=== PATIENT | female | born 1945 | race Native Hawaiian/Other Pacific Islander ===

== ENCOUNTER 2017-03-07 15:59 | Outpatient (CLI) | payer OTHER | END 2017-03-07 19:09 | disposition home or self-care (01) | LOC: LAB 15:59 | DX: N39.0 Urinary tract infection, site not specified (principal) | CPT/HCPCS: 81000; 87086; 87088 ==

== ENCOUNTER 2017-03-18 10:46 | Outpatient (CLI) | payer OTHER ==
[2017-03-18 11:22] LABS: PLATELET COUNT 303 K/uL (152-353)
[2017-03-18 11:32] LABS: POTASSIUM 4.6 mmol/L (3.6-5.2)
[2017-05-04] MEDS ORDERED: DEPAKOTE DR PO (02:29)
[2017-05-04] MEDS ORDERED: METFTAB PO (02:29)
[2017-05-04] MEDS ORDERED: DONE5TAB PO (02:30)
[2017-05-04] MEDS ORDERED: BENZ1TAB43 PO (02:30)
[2017-05-04] MEDS ORDERED: ESTRACE0.5 MG PO (02:32)
[2017-05-04] MEDS ORDERED: FERROUS SULF325 M1 PO (02:33)
[2017-05-04] MEDS ORDERED: THIOTHIXENE5 MG PO (02:33)
[2017-05-04] MEDS ORDERED: ZIPR20CA PO (02:34)
== END 2017-03-18 19:02 | disposition home or self-care (01) ==
LOC: LAB 10:46
PROVIDERS: Internal Medicine
DX: E11.51 Type 2 diabetes mellitus with diabetic peripheral angiopathy without gangrene (principal); F32.89 Other specified depressive episodes; I87.2 Venous insufficiency (chronic) (peripheral); E03.8 Other specified hypothyroidism
CPT/HCPCS: 80053; 83036; 84439; 84443; 85027

== ENCOUNTER 2017-05-03 18:38 | Outpatient (CLI) | payer OTHER ==
[2017-05-04] MEDS ORDERED: DEPAKOTE DR PO (02:29)
[2017-05-04] MEDS ORDERED: METFTAB PO (02:29)
[2017-05-04] MEDS ORDERED: DONE5TAB PO (02:30)
[2017-05-04] MEDS ORDERED: BENZ1TAB43 PO (02:30)
[2017-05-04] MEDS ORDERED: ESTRACE0.5 MG PO (02:32)
[2017-05-04] MEDS ORDERED: FERROUS SULF325 M1 PO (02:33)
[2017-05-04] MEDS ORDERED: THIOTHIXENE5 MG PO (02:33)
[2017-05-04] MEDS ORDERED: ZIPR20CA PO (02:34)
== END 2017-05-03 18:55 | disposition short-term general hospital (02) ==
LOC: AMB 18:38
DX: R41.82 Altered mental status, unspecified (principal)
CPT/HCPCS: A0425; A0427

== ENCOUNTER 2017-07-04 09:45 | Inpatient (IN) | payer OTHER ==
[~2017-07-04 09:45] MED LIST: BENZ1TAB43 PO; DEPAKOTE DR PO; DONE5TAB PO; ESTRACE0.5 MG PO; FERROUS SULF325 M1 PO; METFTAB PO; THIOTHIXENE5 MG PO; ZIPR20CA PO
== END 2017-07-14 10:57 | disposition still patient (30) ==
LOC: PAVC 09:45
PROVIDERS: ADMIT Internal Medicine

== ENCOUNTER 2017-07-05 02:54 | Outpatient (CLI) | payer OTHER ==
[2017-07-05 07:10] LABS: PLATELET COUNT 380 K/uL (152-353)
[2017-07-05 09:19] LABS: POTASSIUM 4.4 mmol/L (3.6-5.2)
== END 2017-07-05 19:22 | disposition home or self-care (01) ==
LOC: LAB 02:54
PROVIDERS: Internal Medicine
DX: D50.8 Other iron deficiency anemias (principal); G30.8 Other Alzheimer's disease; F20.89 Other schizophrenia; G31.84 Mild cognitive impairment of uncertain or unknown etiology; E11.9 Type 2 diabetes mellitus without complications
CPT/HCPCS: 80053; 82728; 83036; 83540; 83735; 85027; 87081

== ENCOUNTER 2017-07-09 04:08 | Outpatient (CLI) | payer OTHER | END 2017-07-09 19:02 | disposition home or self-care (01) | LOC: LAB 04:08 | DX: R41.82 Altered mental status, unspecified (principal) | CPT/HCPCS: 81000 ==

== ENCOUNTER 2017-07-13 12:45 | Outpatient (CLI) | payer OTHER | END 2017-07-13 19:13 | disposition home or self-care (01) | LOC: LAB 12:45 | DX: R19.7 Diarrhea, unspecified (principal) | CPT/HCPCS: 82272; 87015; 87045; 87324; 87328; 87329; 87449; 87899 ==

== ENCOUNTER 2017-07-14 11:46 | Inpatient (IN) | payer OTHER | END 2017-08-14 11:13 | disposition still patient (30) | LOC: PAVC 11:46 | PROVIDERS: ADMIT Internal Medicine ==

== ENCOUNTER 2017-08-07 19:55 | Outpatient (CLI) | payer OTHER | END 2017-08-07 20:55 | disposition home or self-care (01) | LOC: LAB 19:55 | DX: R41.0 Disorientation, unspecified (principal) | CPT/HCPCS: 81000 ==

== ENCOUNTER 2017-08-14 12:30 | Inpatient (IN) | payer OTHER | END 2017-09-11 10:38 | disposition still patient (30) | LOC: PAVC 12:30 | PROVIDERS: ADMIT Internal Medicine ==

== ENCOUNTER 2017-08-18 15:08 | Outpatient (CLI) | payer OTHER | END 2017-08-18 20:28 | disposition home or self-care (01) | LOC: LAB 15:08 | DX: R26.89 Other abnormalities of gait and mobility (principal); R41.82 Altered mental status, unspecified | CPT/HCPCS: 81000; 87077; 87086; 87088; 87186 ==

== ENCOUNTER 2017-09-10 04:39 | Outpatient (CLI) | payer OTHER | END 2017-09-10 21:38 | disposition home or self-care (01) | LOC: LAB 04:39 | DX: R35.0 Frequency of micturition (principal); R10.84 Generalized abdominal pain | CPT/HCPCS: 81000 ==

== ENCOUNTER 2017-09-11 10:57 | Inpatient (IN) | payer OTHER ==
[2017-10-13] MEDS ORDERED: PANTOPRAZOLE 40MG TA PO (17:55)
[2017-10-13] MEDS ORDERED: FERROUS SULF325 M1 PO (17:56)
[2017-10-13] MEDS ORDERED: BENZ1TAB43 PO (17:57)
[2017-10-13] MEDS ORDERED: MAG OXIDE400 MG OR (17:58)
[2017-10-13] MEDS ORDERED: NAMZARIC 28-101 CAP PO (17:58)
[2017-10-13] MEDS ORDERED: GEODON60 MG PO (17:59)
[2017-10-13] MEDS ORDERED: DIVALPROEX250 M1 PO (17:59)
[2017-10-13] MEDS ORDERED: FIBER LAXATIV0.52 GM PO (18:00)
== END 2017-10-12 08:00 | disposition still patient (30) ==
LOC: PAVC 10:57
PROVIDERS: ADMIT Internal Medicine

== ENCOUNTER 2017-09-19 05:14 | Outpatient (CLI) | payer OTHER | END 2017-09-19 21:13 | disposition home or self-care (01) | LOC: LAB 05:14 | DX: E03.8 Other specified hypothyroidism (principal); E11.9 Type 2 diabetes mellitus without complications | CPT/HCPCS: 83036 ==

== ENCOUNTER 2017-10-12 09:00 | Inpatient (IN) | payer OTHER ==
[2017-10-13] MEDS ORDERED: PANTOPRAZOLE 40MG TA PO (17:55)
[2017-10-13] MEDS ORDERED: FERROUS SULF325 M1 PO (17:56)
[2017-10-13] MEDS ORDERED: BENZ1TAB43 PO (17:57)
[2017-10-13] MEDS ORDERED: MAG OXIDE400 MG OR (17:58)
[2017-10-13] MEDS ORDERED: NAMZARIC 28-101 CAP PO (17:58)
[2017-10-13] MEDS ORDERED: DIVALPROEX250 M1 PO (17:59)
[2017-10-13] MEDS ORDERED: GEODON60 MG PO (17:59)
[2017-10-13] MEDS ORDERED: FIBER LAXATIV0.52 GM PO (18:00)
== END 2017-11-11 10:28 | disposition still patient (30) ==
LOC: PAVC 09:00
PROVIDERS: ADMIT Internal Medicine
CPT/HCPCS: 85014; 85018

== ENCOUNTER 2017-10-13 17:35 | Emergency (ER) | payer OTHER ==
[~2017-10-13] VITALS: Ht 162.6 cm; Wt 60.0 kg
[2017-10-13] MEDS ORDERED: PANTOPRAZOLE 40MG TA PO (17:55)
[2017-10-13] MEDS ORDERED: FERROUS SULF325 M1 PO (17:56)
[2017-10-13] MEDS ORDERED: BENZ1TAB43 PO (17:57)
[2017-10-13] MEDS ORDERED: NAMZARIC 28-101 CAP PO (17:58)
[2017-10-13] MEDS ORDERED: MAG OXIDE400 MG OR (17:58)
[2017-10-13] MEDS ORDERED: DIVALPROEX250 M1 PO (17:59)
[2017-10-13] MEDS ORDERED: GEODON60 MG PO (17:59)
[2017-10-13] MEDS ORDERED: FIBER LAXATIV0.52 GM PO (18:00)
[2017-10-13 18:31] LABS: PLATELET COUNT 363 K/uL (152-353)
[2017-10-13 18:52] LABS: POTASSIUM 4.5 mmol/L (3.6-5.2)
[2017-10-13 20:10] VITALS: BP 110/62; TEMP 97.6
== END 2017-10-13 20:10 | disposition home or self-care (01) ==
LOC: ED 17:35
DX: S60.511A Abrasion of right hand, initial encounter (principal); R00.0 Tachycardia, unspecified; W01.0XXA Fall on same level from slipping, tripping and stumbling without subsequent striking against object, initial encounter; Y92.129 Unspecified place in nursing home as the place of occurrence of the external cause
CPT/HCPCS: 36415; 80048; 81000; 82550; 84484; 85027; 93005; 96374; 99284; J3490

== ENCOUNTER 2017-10-14 13:34 | Outpatient (CLI) | payer OTHER ==
[~2017-10-14 13:34] MED LIST changes: +DIVALPROEX250 M1 PO; +FIBER LAXATIV0.52 GM PO; +GEODON60 MG PO; +MAG OXIDE400 MG OR; +NAMZARIC 28-101 CAP PO; +PANTOPRAZOLE 40MG TA PO
== END 2017-10-14 22:56 | disposition home or self-care (01) ==
LOC: LAB 13:34
DX: Z79.899 Other long term (current) drug therapy (principal); Z51.81 Encounter for therapeutic drug level monitoring
CPT/HCPCS: 80076

== ENCOUNTER 2017-10-27 17:53 | Outpatient (CLI) | payer OTHER ==
[2017-10-27 18:42] LABS: PLATELET COUNT 348 K/uL (152-353)
[2017-10-27 18:50] LABS: POTASSIUM 4.3 mmol/L (3.6-5.2)
== END 2017-10-27 20:11 | disposition home or self-care (01) ==
LOC: LAB 17:53
PROVIDERS: Internal Medicine
DX: R53.1 Weakness (principal); Z73.6 Limitation of activities due to disability
CPT/HCPCS: 80053; 81000; 83735; 85027; 87088

== ENCOUNTER 2017-10-30 04:55 | Outpatient (CLI) | payer OTHER | END 2017-10-30 22:03 | disposition home or self-care (01) | LOC: LAB 04:55 | DX: Z79.899 Other long term (current) drug therapy (principal); Z51.81 Encounter for therapeutic drug level monitoring | CPT/HCPCS: 80162 ==

== ENCOUNTER 2017-11-03 13:02 | Outpatient (CLI) | payer OTHER | END 2017-11-03 22:51 | disposition home or self-care (01) | LOC: CT 13:02 | DX: R41.82 Altered mental status, unspecified (principal) ==

== ENCOUNTER 2017-11-06 23:29 | Outpatient (CLI) | payer OTHER | END 2017-11-06 23:50 | disposition home or self-care (01) | LOC: LABW 23:29 | DX: R82.99 Other abnormal findings in urine (principal) | CPT/HCPCS: 81000 ==

== ENCOUNTER 2017-11-07 09:11 | Outpatient (CLI) | payer OTHER | END 2017-11-07 19:13 | disposition home or self-care (01) | LOC: LAB 09:11 → INF 09:11 | PROC: 30233N1 Transfusion of Nonautologous Red Blood Cells into Peripheral Vein, Percutaneous Approach (ICD-10-PCS; principal; 2017-11-07) | DX: D64.89 Other specified anemias (principal) | CPT/HCPCS: 86850; 86900; 86901; 86922; J1940; P9016 ==

== ENCOUNTER 2017-11-09 11:16 | Outpatient (CLI) | payer OTHER | END 2017-11-09 21:22 | disposition home or self-care (01) | LOC: LAB 11:16 | DX: D64.89 Other specified anemias (principal) | CPT/HCPCS: 82272 ==

== ENCOUNTER 2017-11-11 10:53 | Inpatient (IN) | payer OTHER ==
[2017-11-15] MEDS ORDERED: DONE5TAB PO (14:20)
[2017-11-15] MEDS ORDERED: METF100038 PO (14:21)
[2017-11-15] MEDS ORDERED: DIGO0.1230 PO (14:22)
[2017-11-15] MEDS ORDERED: MULT VITAMIN (14:23)
[2017-11-15] MEDS ORDERED: METOPROLOL25 M1 (14:25)
[2017-11-15] MEDS ORDERED: NAMENDA5 MG OR (14:25)
== END 2017-12-12 10:24 | disposition still patient (30) ==
LOC: PAVC 10:53
PROVIDERS: ADMIT Internal Medicine
DX: A41.9 Sepsis, unspecified organism (principal); M62.81 Muscle weakness (generalized); M25.522 Pain in left elbow; J18.9 Pneumonia, unspecified organism; F20.9 Schizophrenia, unspecified; N39.46 Mixed incontinence; D50.9 Iron deficiency anemia, unspecified; G30.9 Alzheimer's disease, unspecified; K21.9 Gastro-esophageal reflux disease without esophagitis

== ENCOUNTER 2017-11-13 07:43 | Day surgery (SDC) | payer OTHER | END 2017-11-13 10:58 | LOC: OR 07:43 | PROC: 0DJD8ZZ Inspection of Lower Intestinal Tract, Via Natural or Artificial Opening Endoscopic (ICD-10-PCS; principal; 2017-11-13) | DX: D64.89 Other specified anemias (principal); R19.5 Other fecal abnormalities | CPT/HCPCS: 94664; C1726; J2001; J2250; J2704; J2765; S0028 ==

== ENCOUNTER 2017-11-15 14:11 | Inpatient (IN) | payer OTHER ==
[~2017-11-15] VITALS: Ht 160 cm; Wt 62.3 kg
[2017-11-15] VITALS (10 sets, daily range): BP systolic 109–132; BP diastolic 69–84; TEMP 98.5–99.7; Ht 160 cm; Wt 62.3 kg
[2017-11-15] MEDS ORDERED: DONE5TAB PO (14:20)
[2017-11-15] MEDS ORDERED: METF100038 PO (14:21)
[2017-11-15] MEDS ORDERED: DIGO0.1230 PO (14:22)
[2017-11-15] MEDS ORDERED: MULT VITAMIN (14:23)
[2017-11-15] MEDS ORDERED: NAMENDA5 MG OR (14:25)
[2017-11-15] MEDS ORDERED: METOPROLOL25 M1 (14:25)
[2017-11-15 15:09] LABS: PLATELET COUNT 379 K/uL (152-353)
[2017-11-15 15:17] LABS: POTASSIUM 4.1 mmol/L (3.6-5.2)
[2017-11-16] VITALS (20 sets, daily range): BP systolic 93–133; BP diastolic 47–78; TEMP 98.2–99.5
[2017-11-16 05:58] LABS: PLATELET COUNT 315 K/uL (152-353)
[2017-11-16 06:04] LABS: POTASSIUM 3.2 mmol/L (3.6-5.2)
[2017-11-17] VITALS (24 sets, daily range): BP systolic 97–132; BP diastolic 50–78; TEMP 97.9–99.3
[2017-11-17 07:18] LABS: PLATELET COUNT 294 K/uL (152-353)
[2017-11-17 08:35] LABS: POTASSIUM 4.4 mmol/L (3.6-5.2)
[2017-11-18] VITALS (14 sets, daily range): BP systolic 95–125; BP diastolic 45–86; TEMP 97.5–98.4
[2017-11-18 07:12] LABS: PLATELET COUNT 270 K/uL (152-353)
== END 2017-11-18 13:45 | DRG 177 ==
LOC: ED 14:11 → ICU 16:15
PROVIDERS: Internal Medicine
DX: J69.0 Pneumonitis due to inhalation of food and vomit (principal); G93.49 Other encephalopathy; E46 Unspecified protein-calorie malnutrition; D64.89 Other specified anemias; K21.9 Gastro-esophageal reflux disease without esophagitis; E11.9 Type 2 diabetes mellitus without complications; D72.828 Other elevated white blood cell count; R41.82 Altered mental status, unspecified; G30.8 Other Alzheimer's disease; F02.80 Dementia in other diseases classified elsewhere, unspecified severity, without behavioral disturbance, psychotic disturbance, mood disturbance, and anxiety; F25.8 Other schizoaffective disorders; K59.09 Other constipation
CPT/HCPCS: 36415; 80048; 80053; 80202; 80307; 81000; 82962; 83735; 83880; 85027; 87040; 93005; 94640; 94664; 94760; 96372; 99283; J0456; J0515; J0696; J1650; J3370; J3490; J7120

== ENCOUNTER 2017-12-12 10:50 | Inpatient (IN) | payer OTHER ==
[~2017-12-12 10:50] MED LIST changes: +DIGO0.1230 PO; +METF100038 PO; +METOPROLOL25 M1; +MULT VITAMIN; +NAMENDA5 MG OR
[2017-12-18 05:12] LABS: PLATELET COUNT 326 K/uL (152-353)
[2017-12-18 05:53] LABS: POTASSIUM 4.4 mmol/L (3.6-5.2)
== END 2018-01-11 15:05 | disposition still patient (30) ==
LOC: PAVC 10:50
PROVIDERS: ADMIT Internal Medicine
DX: J18.9 Pneumonia, unspecified organism (principal); M62.81 Muscle weakness (generalized); R26.89 Other abnormalities of gait and mobility; A41.9 Sepsis, unspecified organism; F20.9 Schizophrenia, unspecified; M25.522 Pain in left elbow; N39.46 Mixed incontinence; R41.82 Altered mental status, unspecified; R53.1 Weakness; G30.9 Alzheimer's disease, unspecified
CPT/HCPCS: 80053; 80162; 80164; 82728; 83036; 83540; 83735; 85007; 85027

== ENCOUNTER 2018-01-06 14:28 | Outpatient (CLI) | payer OTHER | END 2018-01-06 21:56 | disposition home or self-care (01) | LOC: LAB 14:28 | DX: R82.90 Unspecified abnormal findings in urine (principal); R41.82 Altered mental status, unspecified | CPT/HCPCS: 81000 ==

== ENCOUNTER 2018-01-11 15:32 | Inpatient (IN) | payer OTHER ==
[2018-02-06 08:18] LABS: PLATELET COUNT 363 K/uL (152-353)
[2018-02-06 08:22] LABS: POTASSIUM 2.8 mmol/L (3.6-5.2)
[2018-02-07 11:33] LABS: POTASSIUM 2.9 mmol/L (3.6-5.2)
[2018-02-08 10:26] LABS: POTASSIUM 2.6 mmol/L (3.6-5.2)
[2018-02-10 07:39] LABS: POTASSIUM 4.8 mmol/L (3.6-5.2)
[2018-02-11 06:53] LABS: POTASSIUM 4.9 mmol/L (3.6-5.2)
[2018-02-11 11:17] LABS: PLATELET COUNT 142 K/uL (152-353)
[2018-02-12 12:58] LABS: PLATELET COUNT 112 K/uL (152-353)
[2018-02-12 12:59] LABS: POTASSIUM 4.5 mmol/L (3.6-5.2)
== END 2018-02-11 08:00 | disposition still patient (30) ==
LOC: PAVC 15:32
PROVIDERS: ADMIT Internal Medicine
DX: A41.9 Sepsis, unspecified organism (principal); J18.9 Pneumonia, unspecified organism; N39.0 Urinary tract infection, site not specified; M62.81 Muscle weakness (generalized); R26.2 Difficulty in walking, not elsewhere classified; F20.9 Schizophrenia, unspecified; R77.0 Abnormality of albumin; R41.82 Altered mental status, unspecified; D50.9 Iron deficiency anemia, unspecified; G30.9 Alzheimer's disease, unspecified
CPT/HCPCS: 36415; 80048; 80053; 83605; 83880; 85007; 85027; J1940; J2405

== ENCOUNTER 2018-01-13 14:25 | Outpatient (CLI) | payer OTHER ==
[2018-01-13 14:42] LABS: PLATELET COUNT 515 K/uL (152-353)
== END 2018-01-13 23:17 | disposition home or self-care (01) ==
LOC: LAB 14:25
PROVIDERS: Internal Medicine
DX: D64.89 Other specified anemias (principal)
CPT/HCPCS: 36415; 85007; 85027

== ENCOUNTER 2018-01-18 18:20 | Outpatient (CLI) | payer OTHER ==
[2018-01-18 18:54] LABS: PLATELET COUNT 186 K/uL (152-353)
== END 2018-01-18 19:44 | disposition home or self-care (01) ==
LOC: LAB 18:20
PROVIDERS: Internal Medicine
DX: D64.89 Other specified anemias (principal); M62.81 Muscle weakness (generalized)
CPT/HCPCS: 36415; 85027

== ENCOUNTER 2018-01-19 11:38 | Outpatient (CLI) | payer OTHER ==
[~2018-01-19] VITALS: Ht 160 cm; Wt 59.0 kg
== END 2018-01-20 18:00 | disposition home or self-care (01) ==
LOC: INF 11:38
PROC: 30233N1 Transfusion of Nonautologous Red Blood Cells into Peripheral Vein, Percutaneous Approach (ICD-10-PCS; principal; 2018-01-19)
PROC: 30233N1 Transfusion of Nonautologous Red Blood Cells into Peripheral Vein, Percutaneous Approach (ICD-10-PCS; 2018-01-20)
DX: D64.89 Other specified anemias (principal)
CPT/HCPCS: 36430; 86850; 86900; 86901; 86922; 96374; 96376; J1940; P9016

== ENCOUNTER 2018-01-21 08:07 | Outpatient (CLI) | payer OTHER | END 2018-01-21 23:20 | disposition home or self-care (01) | LOC: LAB 08:07 | DX: D64.89 Other specified anemias (principal) | CPT/HCPCS: 82272; 85014; 85018 ==

== ENCOUNTER 2018-01-22 08:46 | Day surgery (SDC) | payer OTHER ==
[~2018-01-22] VITALS: Ht 30.5 cm; Wt 0.5 kg
[2018-01-22 09:03] LABS: PLATELET COUNT 324 K/uL (152-353)
[2018-01-22 09:15] LABS: POTASSIUM 3.4 mmol/L (3.6-5.2)
== END 2018-01-22 11:00 | disposition home or self-care (01) ==
LOC: OR 08:46
PROVIDERS: Internal Medicine
PROC: 0DJ08ZZ Inspection of Upper Intestinal Tract, Via Natural or Artificial Opening Endoscopic (ICD-10-PCS; principal; 2018-01-22)
DX: K21.9 Gastro-esophageal reflux disease without esophagitis (principal); R10.84 Generalized abdominal pain; D64.89 Other specified anemias
CPT/HCPCS: 80053; 82272; 85007; 85027; J2001; J2405; J2704; J2765; J7060

== ENCOUNTER 2018-01-26 18:50 | Outpatient (CLI) | payer OTHER | END 2018-01-26 23:10 | disposition home or self-care (01) | LOC: LAB 18:50 → LABW 18:50 → LAB 23:10 | DX: D64.89 Other specified anemias (principal) | CPT/HCPCS: 82272 ==

== ENCOUNTER 2018-01-28 08:33 | Outpatient (CLI) | payer OTHER | END 2018-01-28 22:31 | disposition home or self-care (01) | LOC: RESP 08:33 | DX: R60.0 Localized edema (principal); R01.1 Cardiac murmur, unspecified | CPT/HCPCS: 93306 ==

== ENCOUNTER 2018-01-29 04:43 | Outpatient (CLI) | payer OTHER | END 2018-01-29 22:45 | disposition home or self-care (01) | LOC: LAB 04:43 | DX: E55.9 Vitamin D deficiency, unspecified (principal) | CPT/HCPCS: 82306 ==

== ENCOUNTER 2018-02-02 07:38 | Inpatient (IN) | payer OTHER ==
[~2018-02-02] VITALS: Ht 160 cm; Wt 60.9 kg
[2018-02-02 07:36] VITALS: BP 108/52; TEMP 101.3
[2018-02-02 08:46] LABS: PLATELET COUNT 301 K/uL (152-353)
[2018-02-02 08:54] LABS: POTASSIUM 3.8 mmol/L (3.6-5.2)
[2018-02-02 11:42] VITALS: BP 102/59; TEMP 97.8; Ht 160 cm; Wt 60.9 kg
[2018-02-02 16:00] VITALS: BP 125/56; TEMP 98.2
[2018-02-02 20:00] VITALS: BP 99/56; TEMP 96.7
[2018-02-03] VITALS: BP 109/49; TEMP 97.8
[2018-02-03 04:00] VITALS: BP 97/42; TEMP 97.7
[2018-02-03 05:35] LABS: PLATELET COUNT 226 K/uL (152-353)
[2018-02-03 05:57] LABS: POTASSIUM 3.4 mmol/L (3.6-5.2)
[2018-02-03 08:00] VITALS: BP 103/46; TEMP 98.6
[2018-02-03 12:00] VITALS: BP 103/54; TEMP 98.2
[2018-02-03 16:00] VITALS: BP 94/46; TEMP 97.7
[2018-02-03 20:00] VITALS: BP 126/56; TEMP 98.2
[2018-02-04] VITALS: BP 100/45; TEMP 98.4
[2018-02-04 04:00] VITALS: BP 107/47; TEMP 98.6
[2018-02-04 08:00] VITALS: BP 116/46; TEMP 97.7
[2018-02-04 12:00] VITALS: BP 106/48; TEMP 97.8
[2018-02-04 16:00] VITALS: BP 120/52; TEMP 97.8
[2018-02-04 20:00] VITALS: BP 110/47; TEMP 98.4
[2018-02-05] VITALS: BP 108/48; TEMP 97.8
[2018-02-05 04:00] VITALS: BP 112/46; TEMP 98
[2018-02-05 07:49] VITALS: BP 114/42; TEMP 97.8
== END 2018-02-05 10:50 | DRG 871 ==
LOC: ED 07:38 → MED/SURG 10:15
PROVIDERS: Internal Medicine; ADMIT Family Medicine
DX: A41.51 Sepsis due to Escherichia coli [E. coli] (principal); G93.49 Other encephalopathy; F20.89 Other schizophrenia; G30.8 Other Alzheimer's disease; F02.80 Dementia in other diseases classified elsewhere, unspecified severity, without behavioral disturbance, psychotic disturbance, mood disturbance, and anxiety; E11.9 Type 2 diabetes mellitus without complications; K21.9 Gastro-esophageal reflux disease without esophagitis; D72.828 Other elevated white blood cell count; K59.09 Other constipation; E77.8 Other disorders of glycoprotein metabolism; D64.89 Other specified anemias
CPT/HCPCS: 36415; 80048; 80053; 81000; 82948; 83605; 83735; 85027; 87040; 87077; 87086; 87088; 87186; 94760; 96365; 96366; 96367; 99283; J0696; J2185; J2405

== ENCOUNTER 2018-02-11 09:00 | Inpatient (IN) | payer OTHER | END 2018-02-25 10:00 | disposition short-term general hospital (02) | LOC: PAVC 09:00 | PROVIDERS: ADMIT Internal Medicine | CPT/HCPCS: 80048; 80053; 83605; 83880; 85007; 85027 ==